=== PATIENT | male | born 1985 | race Caucasian/White ===

== ENCOUNTER 2023-04-24 13:36 | Emergency (ER) | payer OTHER, SELFPAY ==
[2023-04-24 13:46] VITALS: BP 160/108; PULSE 129; RESP 20; TEMP 36.4; O2SAT 100
--- NOTE | 2023-04-24 13:48 | ED.WOUNDLAC ---
HPI - Wound/Laceration General Chief Complaint: Wound/Laceration Stated Complaint: L LEG LACERATION Time Seen by Provider: 04/24/23 14:10 Source: patient and RN notes reviewed Mode of arrival: ambulatory Limitations: no limitations History of Present Illness HPI narrative: 37-year-old male presents with concern for laceration to his left thigh. 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 He reports he believes he had a tetanus shot about 1 year ago. He reports bleeding. Denies decreased sensation, strength range of motion distal to the wound. Related Data Home Medications Medication Instructions Recorded Confirmed dextroamphetamine-amphetamine 20 20 mg PO BID 04/24/23 04/24/23 mg tablet Allergies Allergy/AdvReac Type Severity Reaction Status Date / Time amoxicillin Allergy Anaphylaxis Verified 04/24/23 13:56 Penicillins Allergy Anaphylaxis Verified 04/24/23 13:56 sulfamethoxazole Allergy Anaphylaxis Verified 04/24/23 13:56 [From Bactrim] trimethoprim [From Bactrim] Allergy Anaphylaxis Verified 04/24/23 13:56 Review of Systems Review of Systems: CONSTITUTIONAL: Denies malaise, chills, sweats, or fever. SKIN: Reports laceration to the left leg MUSCULOSKELETAL: Denies muscle skeletal pain NEUROLOGIC: Denies numbness, weakness All systems reviewed & are unremarkable except as noted in HPI and below PMFSH Comments At time of signature, agree with nursing past medical, surgical, social and family history. There is no relevant family history pertinent to the presenting complaint Exam Narrative: GENERAL: Well-appearing, well-nourished, and in no acute distress. HEAD: Normocephalic, atraumatic. EYES: PERRLA, conjunctivae clear ENT: Mucous membranes moist. NECK: Supple. No lymphadenopathy CHEST: Clear to auscultation. No respiratory distress. HEART: Regular rate and rhythm. SKIN: Warm, dry. 4.5 cm linear laceration through the dermis into the subcutaneous tissue noted to the mid left thigh NEURO: Alert and oriented x3. PSYCH: Normal mood and affect Course Course Emergency Course: Patient is aware of diagnosis, understands and agrees to treatment plan. Anticipatory guidance given. Patient agrees to follow-up as directed and is aware of reasons to seek care at the emergency department. Portions of this record may have been created with voice recognition software Level of Care: Express Care Visit Vital Signs Vital signs: Vital Signs Temperature 97.6 F 04/24/23 13:46 Pulse Rate 129 H 04/24/23 13:46 Respiratory Rate 20 04/24/23 13:46 Blood Pressure 160/108 H 04/24/23 13:46 Pulse Oximetry 100 04/24/23 13:46 Temperature 97.6 F 04/24/23 13:46 Pulse Rate 129 H 04/24/23 13:46 Respiratory Rate 20 04/24/23 13:46 Blood Pressure 160/108 H 04/24/23 13:46 Pulse Oximetry 100 04/24/23 13:46 Reviewed. Procedures Laceration Laceration 1: Date: 04/24/23 Time: 14:20 Site: lower extremity Side (If applicable): left Size (cm): 4.5 Description: linear Depth: simple, single layer Local Anesthetic: lidocaine 1% Amount of anesthesia used (mL): 6 Pre-repair: wound explored and irrigated ====== Skin Level ====== Skin layer closed with: nylon Size (cm): 4-0 Number of sutures: 5 Technique: simple, interrupted ====== Subcutaneous Layer ====== ====== Muscle Layer ====== ====== Tendon Layer ====== MDM - Wound/Laceration MDM Narrative Medical decision making narrative: Wound explored for foreign body and copious irrigation provided with no evidence of FB. Discussed the potential of retained foreign body with the patient and signs/symptoms that should prompt the patient to immediately go to the ED for reevaluation. The wound was explored and no foreign bodies were found. There was no evidence of tendon
[2023-04-24] MEDS: LIDOCAINE HCL 1% LOCAL INJ 2 ML AMPUL 4 ML INFILTRATE (14:20)
[2023-04-24] MEDS: LIDOCAINE HCL 1% LOCAL INJ 2 ML AMPUL INFILTRATE (14:23)
[2023-04-24 14:40] VITALS: BP 148/78; PULSE 78; RESP 18; O2SAT 98
== END 2023-04-24 14:43 | disposition home or self-care (01) ==
PROVIDERS: Emergency Provider Nurse Practitioner
DX: S71.112A Laceration without foreign body, left thigh, initial encounter (principal); W26.8XXA Contact with other sharp object(s), not elsewhere classified, initial encounter
CPT/HCPCS: 12002; 99212; G0463